=== PATIENT | male | born 2000 | race Hispanic/Latino ===

== ENCOUNTER 2019-05-21 22:08 | Emergency (ER) | payer SELFPAY ==
[~2019-05-21] VITALS: Ht 172.7 cm; Wt 87.5 kg
== END 2019-05-21 22:55 | disposition home or self-care (01) ==
LOC: FSED 22:08
DX: S61.205A Unspecified open wound of left ring finger without damage to nail, initial encounter (principal); W45.8XXA Other foreign body or object entering through skin, initial encounter; Y92.008 Other place in unspecified non-institutional (private) residence as the place of occurrence of the external cause
CPT/HCPCS: 99283